=== PATIENT | female | born 1950 | race Caucasian/White ===

== ENCOUNTER 2022-04-15 11:19 | Outpatient (CLI) | payer MEDICARE, OTHER, SELFPAY ==
--- NOTE | 2022-04-15 11:15 | RT.EKG_ITS ---
APPROVED REPORT Exam: Resting ECG Reason for Exam: tricuspid insufficiency Patient Location: O HR:82 bpm ECG Measurements Heart Rate 82 AXIS CA 111 P 14 QRSd 84 QRS 40 QT 362 T -7 QTc 423 Conclusion Sinus rhythm...normal P axis, V-rate 50- 99 Borderline short CA interval...CA int <120mS
== END 2022-04-15 11:20 | disposition home or self-care (01) ==
LOC: DI.CARD 11:19
PROVIDERS: PCP Internal Medicine; Visit Provider Internal Medicine Cardiovascular Disease
DX: I07.1 Rheumatic tricuspid insufficiency (principal)
CPT/HCPCS: 93010

== ENCOUNTER → 2022-04-15 12:46 | Outpatient (BNVA) | payer MEDICARE, OTHER, SELFPAY | PROVIDERS: PCP Internal Medicine; Visit Provider Internal Medicine Cardiovascular Disease | DX: I07.1 Rheumatic tricuspid insufficiency (principal); E78.5 Hyperlipidemia, unspecified | CPT/HCPCS: 93005; 99202; 99203 ==

== ENCOUNTER → 2023-04-15 10:43 | Outpatient (BNVA) | payer MEDICARE, OTHER, SELFPAY | PROVIDERS: PCP Internal Medicine; Referring Provider Internal Medicine; Visit Provider Internal Medicine Cardiovascular Disease | DX: I36.1 Nonrheumatic tricuspid (valve) insufficiency (principal) | CPT/HCPCS: 99213 ==